=== PATIENT | male | born 1940 | race Caucasian/White ===

== ENCOUNTER 2022-04-05 06:36 | Day surgery (SDC) | payer MEDICARE, OTHER ==
[2022-04-05] MEDS ORDERED: Propofol 200 MG/20 ML SDV IV ONE (06:37)
[2022-04-05] MEDS ORDERED: fentaNYL 100 MCG/2 ML SDV IV ONE (06:37)
[2022-04-05] MEDS ORDERED: Midazolam 1 MG/ML 2 ML SDV IV ONE (06:37)
[2022-04-05] MEDS ORDERED: ePHEDrine 50 MG/ML SDV IV ONE (06:37)
[2022-04-05] MEDS ORDERED: Sugammadex Sodium 200 MG/2 ML VIAL IV ONE (06:37)
[2022-04-05] MEDS ORDERED: Lactated Ringers 1,000 ML IV ONE (06:37)
[2022-04-05] MEDS ORDERED: Ondansetron 4 MG/2 ML SDV IVPUSH ONE (06:37)
[2022-04-05] MEDS ORDERED: Rocuronium 100 MG/10 ML MDV IV ONE (06:37)
[2022-04-05] MEDS ORDERED: Lactated Ringers 1,000 ML IV SCH (07:30)
[2022-04-05] MEDS ORDERED: Sodium Chloride 0.9% 10 ML Syringe FLUSH PRN (07:30)
[2022-04-05] MEDS ORDERED: ceFAZolin 2 GM in Premix Bag 1 BAG IV ONE (07:30)
[2022-04-05] MEDS ORDERED: Bupivacaine 0.5%/EPINEPHrine 1:200,000 10 ML SDV INJECT ONE (08:25)
== END 2022-04-05 11:18 | disposition home or self-care (01) ==
LOC: FB.SDS 06:36
PROVIDERS: ATTEND Surgery
DX: K80.10 Calculus of gallbladder with chronic cholecystitis without obstruction (principal); E03.9 Hypothyroidism, unspecified; E78.00 Pure hypercholesterolemia, unspecified; N40.0 Benign prostatic hyperplasia without lower urinary tract symptoms; I82.409 Acute embolism and thrombosis of unspecified deep veins of unspecified lower extremity; Z98.890 Other specified postprocedural states; Z96.659 Presence of unspecified artificial knee joint; Z96.641 Presence of right artificial hip joint; Z79.899 Other long term (current) drug therapy; Z79.01 Long term (current) use of anticoagulants
CPT/HCPCS: 00790; 47562; 88304; J0690; J2250; J2405; J2704; J3010; J3490; J7120